=== PATIENT | male | born 2000 | race Two or more races ===

== ENCOUNTER 2024-08-02 08:31 | Emergency (ER) | payer OTHER, SELFPAY ==
[2024-08-02 08:33] VITALS: BMI 28.3
[2024-08-02 08:40] VITALS: BP 154/72; PULSE 72; RESP 16; TEMP 37; O2SAT 99
--- NOTE | 2024-08-02 08:44 | XR_ITS ---
Examination: Hand, left 3 views Technique: Hand AP, oblique, lateral 3 views Date and time of exam: August 02, 2024 0847 hours INDICATIONS: Injury to the hand today with third digit pain FINDINGS: Comminuted fracture ungual tuft tip distal phalanx third digit with mild separation of fracture fragments No foreign body IMPRESSION: Comminuted fracture ungual tuft tip distal phalanx third digit
--- NOTE | 2024-08-02 08:44 | PD.EDHAND ---
Upper Extremity Injury RME/HPI General Chief Complaint: Hand/Wrist Problems Stated Complaint: SMASHED LEFT THIRD FINGER Time Seen by Provider: 08/02/24 08:34 Arrival date/time: 08/02/24 08:31 23-year-old male presents to the Emergency Department with complaint of left hand third digit injury as well as fourth digit injury primary concerns of left third digit patient reports bruising and swelling. Limitations: no limitations Related Data Previous Rx's ?Medication ?Instructions ?Recorded cephalexin 500 mg tablet 500 mg PO QID 7 days #28 tabs 08/02/24 hydrocodone 5 mg-acetaminophen 325 1 tab PO BID PRN pain #10 tabs 08/02/24 mg tablet ibuprofen 800 mg tablet 800 mg PO TID PRN pain #30 tabs 08/02/24 Review of Systems Review of Systems Systems Reviewed: All systems reviewed, normal except as documented Constitutional Constitutional: Reports system reviewed and no additional complaints, except as documented, Denies fever(s) and Denies headache(s) Eyes Eyes: Reports system reviewed and no additional complaints, except as documented and Denies blurry vision ENT Ears, Nose, Mouth, and Throat: Reports system reviewed and no additional complaints, except as documented, Denies headache(s), Denies nasal congestion and Denies nasal discharge Cardiovascular Cardiovascular: Reports system reviewed and no additional complaints, except as documented, Denies chest pain and Denies dyspnea Respiratory Respiratory: Reports system reviewed and no additional complaints, except as documented, Denies chest congestion, Denies cough and Denies dyspnea Gastrointestinal Gastrointestinal: Reports system reviewed and no additional complaints, except as documented and Denies abdominal pain Musculoskeletal Musculoskeletal: Reports system reviewed and no additional complaints, except as documented, Reports arthralgias, Denies deformity, Denies numbness, Denies tingling and Reports other (Injury left hand 3rd and 4th digit) Integumentary/Breasts Skin/Breast: Reports system reviewed and no additional complaints, except as documented, Denies rash and Reports other (Injury left hand 3rd and 4th digit) Neurologic Neurologic: Reports system reviewed and no additional complaints, except as documented, Reports as per HPI, Denies headache(s), Denies numbness and Denies tingling Past Medical History Social History SMOKING STATUS: Never smoker ED Exam General Limitations: Present no limitations General appearance: Present alert and in no apparent distress Head Head exam: Present atraumatic Eye Eye exam: Present normal appearance, PERRL and EOMI ENT ENT exam: Present normal exam, normal oropharynx and mucous membranes moist Neck Neck exam: Present normal inspection, full ROM and trachea midline Chest Chest inspection: Present normal inspection and symmetric chest wall rise Respiratory Respiratory exam: Present normal lung sounds bilaterally Cardiovascular Cardiovascular exam: Present regular rate, normal rhythm and normal heart sounds Abdominal Exam Abdominal exam: Present soft and normal bowel sounds Extremities Exam Extremities exam: Present full ROM, tenderness, normal capillary refill, joint swelling and other (Injury left hand 3rd and 4th digit swelling left hand middle digit) Back Exam Back exam: Present normal inspection and full ROM Neurological Exam Neurological exam: Present alert, oriented X3 and CN II-XII intact Psychiatric Psychiatric exam: Present normal affect and normal mood Skin Skin exam: Present warm, dry and other (Injury left hand 3rd and 4th digit swelling left hand middle digit superficial laceration) Course Quality Measures none Orders Category Date Time Status XR hand comp LT min 3V Stat Exams 08/02/24 08:44 Completed Vital Signs Vital signs: Vital Signs Temperature 98.6 F 08/02/24 08:40 Pulse Rate 72 08/02/24 08:40 Respiratory Rate 16 08/02/24 08:40 Blood Pressure 154/72 H 08/02/24 08:40 Pulse Oximetry (%) 99 08/02/24 08:40 Oxygen Delivery Method Room Air 08/02/24 08:40 O2 saturation 99% room air within normal limits Procedures -ED Splint Fabrication: Pre-Fabricated Type: Finger Protector Reason for Splint: Optimal Positioning and Pain Management Circulation Distal to Splint: Yes Movement Distal to Splint: Yes Senation Distal to Splint: Yes Tolerance: Tolerates Well Extremity Injury MDM Narrative MDM Narrative:: 23-year-old male presents to the Emergency Department with complaint of left hand third digit injury as well as fourth digit injury primary concerns of left third digit patient reports bruising and swelling. On exam patient has tenderness bruising and swelling to left hand third digit with associated abrasion superficial Patient reports tetanus up-to-date Imaging obtained consistent with fracture patient placed in a splint Patient discharged home with pain medication antibiotics Patient data External records reviewed:: [facility] previous records Clinical information provided by:: patient Social determinants that could affect healthcare access:: none Patient has the following chronic illnesses:: None How is presenting disease/condition affected by chronic disease/condition?: no chronic disease Evaluation data The following diagnostics were reviewed and interpreted by me:: radiology exam(s) Lab and/or radiology exams considered but not ordered:: Radiology obtain Interpretation Summary: Reviewed by me Medications / Prescriptions Medications or Prescriptions considered but not ordered:: Given Medication administrations:: Given Consultations Consultation(s) initiated? (list below): No Diagnosis Upper Extremity Injury Differential Diagnosis: finger sprain and fracture of hand Most likely diagnosis given after review of the tests above:: Finger fracture Admission Indicated Admission indicated?: not indicated Admission Request Was there a request for admission?: No Disposition Plan Disposition Plan: Discharge Discharge Attestation Discharge Attestation: The patient and all family members were given an opportunity to ask questions and understood the discharge instructions. Discharge instructions specifically effects, indications for sooner follow up or return to the emergency department, and the expected course of current diagnosis. Patient condition: Stable Discharge Plan Plan Patient Disposition: HOME (Self Care) Disposition Comment: Stable Prescriptions/Referrals Prescriptions/Med Rec: New ibuprofen 800 mg tablet 800 mg PO TID PRN (Reason: pain) Qty: 30 0RF hydrocodone-acetaminophen 5-325 mg tablet 1 tab PO BID MDD 10 PRN (Reason: pain) Qty: 10 0RF cephalexin 500 mg tablet 500 mg PO QID 7 Days Qty: 28 0RF Referrals: No Primary/Family,Physician [Primary Care Provider] - 08/03/24 Problem List Clinical Impression: Fracture of finger of left hand Patient/Caregiver Discharge Instructions Education Materials: ED Fracture, Finger, Closed Additional Instructions: Please follow up with your primary care doctor in the next 24-48hrs for any worsening symptoms return here immediately Print Language: Setswana Stand Alone Forms: Karlee Award Info., Work/School Release, Patient Portal Info Letter PA/[employer] HAND Supervising Physician PA/CHUYITA Supervising Physician: Dr [email or web address]
== END 2024-08-02 09:21 | disposition home or self-care (01) ==
PROVIDERS: Emergency Provider Emergency Medicine
DX: S62.633A Displaced fracture of distal phalanx of left middle finger, initial encounter for closed fracture (principal); X58.XXXA Exposure to other specified factors, initial encounter
CPT/HCPCS: 73130; 99283